=== PATIENT | female | born 1935 | race Caucasian/White ===

== ENCOUNTER 2021-09-20 11:02 | Inpatient (IN) | payer MEDICARE, BC ==
[2021-09-20] MEDS ORDERED: Acetaminophen/HYDROcodone 325-10 MG Tab PO PRN (13:23)
[2021-09-20] MEDS ORDERED: Melatonin 3 MG Tab PO PRN (13:23)
[2021-09-20] MEDS ORDERED: Acetaminophen 325 MG Tab PO PRN (13:46)
[2021-09-20] MEDS ORDERED: Ondansetron 4 MG Tab.DIS PO PRN (13:46)
[2021-09-20] MEDS ORDERED: Docusate Sodium 100 MG Cap PO PRN (13:46)
[2021-09-20] MEDS ORDERED: Polyethylene Glycol 3350 Powder 17 GM Packet PO PRN (13:46)
[2021-09-20 14:39] LABS: ANION GAP 10.1 mEq/L (7-13)
[2021-09-20] MEDS: Ezetimibe 10 MG Tab PO SCH (20:07)
[2021-09-20] MEDS: Metoprolol Tartrate 25 MG Tab PO SCH (20:07)
[2021-09-20] MEDS: Aspirin 81 MG Tab.EC PO SCH (20:07)
[2021-09-20] MEDS: Pregabalin 75 MG Cap PO SCH (20:07)
[2021-09-20] MEDS: Acetaminophen/HYDROcodone 325-10 MG Tab PO PRN (22:15)
[2021-09-21] MEDS: Levothyroxine 100 MCG Tab PO SCH (05:13)
[2021-09-21] MEDS: Acetaminophen/HYDROcodone 325-10 MG Tab PO PRN ×4 (05:13→20:21)
[2021-09-21] MEDS: Calcitriol 0.25 MCG Cap PO SCH (09:21)
[2021-09-21] MEDS: Enoxaparin 30 MG/0.3 ML Syringe SUBCUT SCH (09:21)
[2021-09-21] MEDS: Furosemide 40 MG Tab PO SCH (09:21)
[2021-09-21] MEDS: Glimepiride 2 MG Tab PO SCH (09:22)
[2021-09-21] MEDS: Pregabalin 75 MG Cap PO SCH ×2 (09:22→20:18)
[2021-09-21] MEDS: Allopurinol 100 MG Tab PO SCH (09:22)
[2021-09-21] MEDS: Metoprolol Tartrate 25 MG Tab PO SCH ×2 (09:24→20:18)
[2021-09-21] MEDS ORDERED: Melatonin 3 MG Tab PO PRN (14:44)
[2021-09-21] MEDS: Ezetimibe 10 MG Tab PO SCH (20:18)
[2021-09-21] MEDS: Aspirin 81 MG Tab.EC PO SCH (20:18)
[2021-09-22] MEDS: Levothyroxine 100 MCG Tab PO SCH (06:09)
[2021-09-22] MEDS: Glimepiride 2 MG Tab PO SCH (08:41)
[2021-09-22] MEDS: Enoxaparin 30 MG/0.3 ML Syringe SUBCUT SCH (08:42)
[2021-09-22] MEDS: Pregabalin 75 MG Cap PO SCH ×2 (08:42→21:01)
[2021-09-22] MEDS: Calcitriol 0.25 MCG Cap PO SCH (08:42)
[2021-09-22] MEDS: Allopurinol 100 MG Tab PO SCH (08:42)
[2021-09-22] MEDS: Metoprolol Tartrate 25 MG Tab PO SCH ×2 (08:42→21:02)
[2021-09-22] MEDS ORDERED: Furosemide 20 MG Tab PO SCH (09:00)
[2021-09-22] MEDS: Acetaminophen/HYDROcodone 325-10 MG Tab PO PRN ×3 (11:29→21:07)
[2021-09-22] MEDS: Aspirin 81 MG Tab.EC PO SCH (21:02)
[2021-09-22] MEDS: Ezetimibe 10 MG Tab PO SCH (21:02)
[2021-09-23 00:21] VITALS: PULSE 62
[2021-09-23] MEDS: Levothyroxine 100 MCG Tab PO SCH (05:48)
[2021-09-23] MEDS: Acetaminophen/HYDROcodone 325-10 MG Tab PO PRN (05:49)
[2021-09-23 08:05] VITALS: BP 141/43
[2021-09-23] MEDS: Furosemide 40 MG Tab PO SCH (09:00)
[2021-09-23] MEDS: Glimepiride 2 MG Tab PO SCH (09:01)
[2021-09-23] MEDS: Calcitriol 0.25 MCG Cap PO SCH (09:02)
[2021-09-23] MEDS: Allopurinol 100 MG Tab PO SCH (09:02)
[2021-09-23] MEDS: Metoprolol Tartrate 25 MG Tab PO SCH (09:02)
[2021-09-23] MEDS: Pregabalin 75 MG Cap PO SCH (09:03)
[2021-09-23] MEDS: Enoxaparin 30 MG/0.3 ML Syringe SUBCUT SCH (09:03)
[2021-10-06] MEDS ORDERED: Cyanocobalamin (Vitamin B12) 1,000 MCG/ML SDV IM ONE (09:00)
== END 2021-09-23 11:20 | disposition swing bed (61) | DRG 563 ==
LOC: UNDOADMIN 11:02 → DL.MS 11:02
PROVIDERS: ADMIT Internal Medicine; ATTEND Internal Medicine
DX: S42.92XA Fracture of left shoulder girdle, part unspecified, initial encounter for closed fracture (principal); N18.4 Chronic kidney disease, stage 4 (severe); W19.XXXA Unspecified fall, initial encounter; E11.22 Type 2 diabetes mellitus with diabetic chronic kidney disease; I12.9 Hypertensive chronic kidney disease with stage 1 through stage 4 chronic kidney disease, or unspecified chronic kidney disease; E11.42 Type 2 diabetes mellitus with diabetic polyneuropathy; J44.9 Chronic obstructive pulmonary disease, unspecified; Z66 Do not resuscitate; H54.7 Unspecified visual loss; E87.6 Hypokalemia; Z20.822 Contact with and (suspected) exposure to COVID-19; K21.9 Gastro-esophageal reflux disease without esophagitis; K59.00 Constipation, unspecified; N93.8 Other specified abnormal uterine and vaginal bleeding; M10.9 Gout, unspecified; E53.8 Deficiency of other specified B group vitamins; D64.9 Anemia, unspecified; Z86.19 Personal history of other infectious and parasitic diseases; Z90.89 Acquired absence of other organs; Z79.899 Other long term (current) drug therapy; Z79.82 Long term (current) use of aspirin; Z79.890 Hormone replacement therapy; Z88.8 Allergy status to other drugs, medicaments and biological substances; Z98.49 Cataract extraction status, unspecified eye; Z90.49 Acquired absence of other specified parts of digestive tract; Z90.710 Acquired absence of both cervix and uterus
CPT/HCPCS: 36415; 80048; 82947; 84443; 85025; 97116-GP; 97166-GO; 97535-GO; A9270-GY; J1650; U0002

== ENCOUNTER 2021-09-23 11:00 | Inpatient (IN) | payer MEDICARE, BC ==
[2021-09-23] MEDS ORDERED: Polyethylene Glycol 3350 Powder 17 GM Packet PO PRN (11:13)
[2021-09-23] MEDS ORDERED: Ondansetron 4 MG Tab.DIS PO PRN (11:13)
[2021-09-23] MEDS ORDERED: Acetaminophen 325 MG Tab PO PRN (11:13)
[2021-09-23] MEDS: Acetaminophen/HYDROcodone 325-10 MG Tab PO PRN ×2 (15:56→20:15)
[2021-09-23] MEDS: Metoprolol Tartrate 25 MG Tab PO SCH (20:14)
[2021-09-23] MEDS: Ezetimibe 10 MG Tab PO SCH (20:14)
[2021-09-23] MEDS: Pregabalin 75 MG Cap PO SCH (20:16)
[2021-09-23] MEDS: Aspirin 81 MG Tab.EC PO SCH (20:16)
[2021-09-24] MEDS: Levothyroxine 100 MCG Tab PO SCH (06:28)
[2021-09-24] MEDS: Acetaminophen/HYDROcodone 325-10 MG Tab PO PRN ×3 (09:22→21:40)
[2021-09-24] MEDS: Pregabalin 75 MG Cap PO SCH ×2 (09:23→21:37)
[2021-09-24] MEDS: Furosemide 20 MG Tab PO SCH (09:23)
[2021-09-24] MEDS: Metoprolol Tartrate 25 MG Tab PO SCH ×2 (09:23→21:38)
[2021-09-24] MEDS: Calcitriol 0.25 MCG Cap PO SCH (09:23)
[2021-09-24] MEDS: Allopurinol 100 MG Tab PO SCH (09:23)
[2021-09-24] MEDS: Enoxaparin 30 MG/0.3 ML Syringe SUBCUT SCH (09:24)
[2021-09-24] MEDS: Glimepiride 2 MG Tab PO SCH (09:24)
[2021-09-24] MEDS: Ezetimibe 10 MG Tab PO SCH (21:37)
[2021-09-24] MEDS: Aspirin 81 MG Tab.EC PO SCH (21:38)
[2021-09-24] MEDS: Melatonin 3 MG Tab PO PRN (21:40)
[2021-09-25] MEDS: Levothyroxine 100 MCG Tab PO SCH (05:42)
[2021-09-25] MEDS: Acetaminophen/HYDROcodone 325-10 MG Tab PO PRN ×3 (09:48→19:38)
[2021-09-25] MEDS: Glimepiride 2 MG Tab PO SCH (09:51)
[2021-09-25] MEDS: Allopurinol 100 MG Tab PO SCH (09:51)
[2021-09-25] MEDS: Metoprolol Tartrate 25 MG Tab PO SCH ×2 (09:52→20:53)
[2021-09-25] MEDS: Furosemide 40 MG Tab PO SCH (09:52)
[2021-09-25] MEDS: Pregabalin 75 MG Cap PO SCH ×2 (09:52→20:54)
[2021-09-25] MEDS: Enoxaparin 30 MG/0.3 ML Syringe SUBCUT SCH (09:52)
[2021-09-25] MEDS: Ezetimibe 10 MG Tab PO SCH (20:53)
[2021-09-25] MEDS: Aspirin 81 MG Tab.EC PO SCH (20:54)
[2021-09-26] MEDS: Levothyroxine 100 MCG Tab PO SCH (05:24)
[2021-09-26] MEDS: Acetaminophen/HYDROcodone 325-10 MG Tab PO PRN ×4 (05:31→20:37)
[2021-09-26] MEDS: Furosemide 20 MG Tab PO SCH (10:30)
[2021-09-26] MEDS: Allopurinol 100 MG Tab PO SCH (10:30)
[2021-09-26] MEDS: Metoprolol Tartrate 25 MG Tab PO SCH ×2 (10:30→20:38)
[2021-09-26] MEDS: Pregabalin 75 MG Cap PO SCH ×2 (10:31→20:39)
[2021-09-26] MEDS: Glimepiride 2 MG Tab PO SCH (10:31)
[2021-09-26] MEDS: Enoxaparin 30 MG/0.3 ML Syringe SUBCUT SCH (10:31)
[2021-09-26] MEDS: Aspirin 81 MG Tab.EC PO SCH (20:37)
[2021-09-26] MEDS: Ezetimibe 10 MG Tab PO SCH (20:39)
[2021-09-27] MEDS: Levothyroxine 100 MCG Tab PO SCH (05:47)
[2021-09-27] MEDS: Acetaminophen/HYDROcodone 325-10 MG Tab PO PRN ×3 (05:48→19:49)
[2021-09-27 07:30] LABS: ANION GAP 11.6 mEq/L (7-13)
[2021-09-27] MEDS: Metoprolol Tartrate 25 MG Tab PO SCH ×2 (09:33→20:12)
[2021-09-27] MEDS: Calcitriol 0.25 MCG Cap PO SCH (09:34)
[2021-09-27] MEDS: Glimepiride 2 MG Tab PO SCH (09:34)
[2021-09-27] MEDS: Allopurinol 100 MG Tab PO SCH (09:35)
[2021-09-27] MEDS: Furosemide 40 MG Tab PO SCH (09:35)
[2021-09-27] MEDS: Pregabalin 75 MG Cap PO SCH ×2 (09:35→20:12)
[2021-09-27] MEDS: Docusate Sodium 100 MG Cap PO PRN (09:35)
[2021-09-27] MEDS: Enoxaparin 30 MG/0.3 ML Syringe SUBCUT SCH (09:36)
[2021-09-27] MEDS: Polyethylene Glycol 3350 Powder 17 GM Packet PO SCH (09:37)
[2021-09-27] MEDS: Iron Sucrose Complex 500 MG in Sodium Chloride 0.9% 250 ML IV SCH ×2 (12:05→12:35)
[2021-09-27] MEDS: Aspirin 81 MG Tab.EC PO SCH (20:12)
[2021-09-27] MEDS: Ezetimibe 10 MG Tab PO SCH (20:12)
[2021-09-28] MEDS: Levothyroxine 100 MCG Tab PO SCH (06:39)
[2021-09-28] MEDS: Glimepiride 2 MG Tab PO SCH (09:13)
[2021-09-28] MEDS: Allopurinol 100 MG Tab PO SCH (09:13)
[2021-09-28] MEDS: Pregabalin 75 MG Cap PO SCH ×2 (09:14→22:17)
[2021-09-28] MEDS: Enoxaparin 30 MG/0.3 ML Syringe SUBCUT SCH (09:15)
[2021-09-28] MEDS: Calcitriol 0.25 MCG Cap PO SCH (09:15)
[2021-09-28] MEDS: Furosemide 20 MG Tab PO SCH (09:15)
[2021-09-28] MEDS: Metoprolol Tartrate 25 MG Tab PO SCH ×2 (09:15→22:17)
[2021-09-28] MEDS: Polyethylene Glycol 3350 Powder 17 GM Packet PO SCH (09:16)
[2021-09-28] MEDS: Acetaminophen/HYDROcodone 325-10 MG Tab PO PRN ×4 (09:19→22:17)
[2021-09-28] MEDS: Iron Sucrose Complex 500 MG in Sodium Chloride 0.9% 250 ML IV SCH (13:07)
[2021-09-28] MEDS ORDERED: Magnesium Hydroxide 400 MG/5 ML Susp 30 ML Cup PO PRN (20:14)
[2021-09-28] MEDS: Melatonin 3 MG Tab PO PRN (22:17)
[2021-09-28] MEDS: Ezetimibe 10 MG Tab PO SCH (22:17)
[2021-09-28] MEDS: Aspirin 81 MG Tab.EC PO SCH (22:17)
[2021-09-29] MEDS: Acetaminophen/HYDROcodone 325-10 MG Tab PO PRN ×4 (05:55→21:22)
[2021-09-29] MEDS: Levothyroxine 100 MCG Tab PO SCH (05:55)
[2021-09-29] MEDS: Allopurinol 100 MG Tab PO SCH (08:15)
[2021-09-29] MEDS: Calcitriol 0.25 MCG Cap PO SCH (08:15)
[2021-09-29] MEDS: Furosemide 40 MG Tab PO SCH (08:16)
[2021-09-29] MEDS: Enoxaparin 30 MG/0.3 ML Syringe SUBCUT SCH (08:16)
[2021-09-29] MEDS: Metoprolol Tartrate 25 MG Tab PO SCH ×2 (08:16→21:24)
[2021-09-29] MEDS: Pregabalin 75 MG Cap PO SCH ×2 (08:16→21:24)
[2021-09-29] MEDS: Polyethylene Glycol 3350 Powder 17 GM Packet PO SCH (08:18)
[2021-09-29 09:24] LABS: ANION GAP 12.7 mEq/L (7-13); CHLORIDE,CL 101 mmol/L (98-107); SODIUM,NA 140 mmol/L (136-145)
[2021-09-29 09:27] LABS: ESTIMATED GFR 13
[2021-09-29] MEDS: Glimepiride 2 MG Tab PO SCH (10:34)
[2021-09-29] MEDS: Ezetimibe 10 MG Tab PO SCH (21:23)
[2021-09-29] MEDS: Aspirin 81 MG Tab.EC PO SCH (21:24)
[2021-09-29] MEDS: Lidocaine 5% 700 MG Patch TOP SCH (21:24)
[2021-09-29] MEDS: Melatonin 3 MG Tab PO PRN (21:24)
[2021-09-29] MEDS ORDERED: Sodium Chloride 0.9% 10 ML Syringe FLUSH PRN (21:29)
[2021-09-30] MEDS: Acetaminophen/HYDROcodone 325-10 MG Tab PO PRN ×2 (05:36→14:38)
[2021-09-30] MEDS: Levothyroxine 100 MCG Tab PO SCH (05:36)
[2021-09-30] MEDS: Allopurinol 100 MG Tab PO SCH (09:58)
[2021-09-30] MEDS: Pregabalin 75 MG Cap PO SCH ×2 (09:59→22:53)
[2021-09-30] MEDS: Metoprolol Tartrate 25 MG Tab PO SCH ×2 (09:59→22:52)
[2021-09-30] MEDS: Furosemide 20 MG Tab PO SCH (09:59)
[2021-09-30] MEDS: Calcitriol 0.25 MCG Cap PO SCH (09:59)
[2021-09-30] MEDS: Enoxaparin 30 MG/0.3 ML Syringe SUBCUT SCH (10:00)
[2021-09-30] MEDS: Polyethylene Glycol 3350 Powder 17 GM Packet PO SCH (10:02)
[2021-09-30] MEDS: Glimepiride 2 MG Tab PO SCH ×2 (10:06→11:10)
[2021-09-30] MEDS ORDERED: Magnesium Hydroxide 400 MG/5 ML Susp 30 ML Cup PO ONE (13:31)
[2021-09-30] MEDS: Ezetimibe 10 MG Tab PO SCH (22:52)
[2021-09-30] MEDS: Aspirin 81 MG Tab.EC PO SCH (22:53)
[2021-09-30] MEDS: Lidocaine 5% 700 MG Patch TOP SCH (22:59)
[2021-10-01] MEDS: Levothyroxine 100 MCG Tab PO SCH (05:16)
[2021-10-01] MEDS: Acetaminophen/HYDROcodone 325-10 MG Tab PO PRN ×4 (05:21→22:48)
[2021-10-01] MEDS: Glimepiride 2 MG Tab PO SCH (08:30)
[2021-10-01] MEDS: Polyethylene Glycol 3350 Powder 17 GM Packet PO SCH (09:48)
[2021-10-01] MEDS: Furosemide 40 MG Tab PO SCH (09:48)
[2021-10-01] MEDS: Calcitriol 0.25 MCG Cap PO SCH (09:49)
[2021-10-01] MEDS: Enoxaparin 30 MG/0.3 ML Syringe SUBCUT SCH (09:49)
[2021-10-01] MEDS: Pregabalin 75 MG Cap PO SCH ×2 (09:50→21:58)
[2021-10-01] MEDS: Allopurinol 100 MG Tab PO SCH (09:51)
[2021-10-01] MEDS: Metoprolol Tartrate 25 MG Tab PO SCH ×2 (09:52→21:57)
[2021-10-01] MEDS ORDERED: predniSONE 20 MG Tab PO ONE (09:57)
[2021-10-01] MEDS: Colchicine 0.6 MG Tab PO SCH ×2 (13:06→21:58)
[2021-10-01] MEDS: Ezetimibe 10 MG Tab PO SCH (21:58)
[2021-10-01] MEDS: Lidocaine 5% 700 MG Patch TOP SCH (21:58)
[2021-10-01] MEDS: Aspirin 81 MG Tab.EC PO SCH (21:58)
[2021-10-02] MEDS: Levothyroxine 100 MCG Tab PO SCH (06:30)
[2021-10-02] MEDS: Acetaminophen/HYDROcodone 325-10 MG Tab PO PRN ×3 (06:35→20:58)
[2021-10-02 07:36] LABS: ANION GAP 13.3 mEq/L (7-13); CHLORIDE,CL 103 mmol/L (98-107); SODIUM,NA 142 mmol/L (136-145)
[2021-10-02 07:39] LABS: ESTIMATED GFR 15
[2021-10-02] MEDS: Polyethylene Glycol 3350 Powder 17 GM Packet PO SCH (08:33)
[2021-10-02] MEDS: Metoprolol Tartrate 25 MG Tab PO SCH ×2 (08:33→21:00)
[2021-10-02] MEDS: Pregabalin 75 MG Cap PO SCH ×2 (08:34→20:59)
[2021-10-02] MEDS: Glimepiride 2 MG Tab PO SCH (08:35)
[2021-10-02] MEDS: Furosemide 20 MG Tab PO SCH (08:35)
[2021-10-02] MEDS: Colchicine 0.6 MG Tab PO SCH ×2 (08:38→21:00)
[2021-10-02] MEDS: Allopurinol 100 MG Tab PO SCH (08:38)
[2021-10-02] MEDS: Enoxaparin 30 MG/0.3 ML Syringe SUBCUT SCH (08:40)
[2021-10-02] MEDS: Lidocaine 5% 700 MG Patch TOP SCH ×2 (19:29→21:01)
[2021-10-02] MEDS: Ezetimibe 10 MG Tab PO SCH (20:59)
[2021-10-02] MEDS: Aspirin 81 MG Tab.EC PO SCH (20:59)
[2021-10-03] MEDS: Levothyroxine 100 MCG Tab PO SCH (05:36)
[2021-10-03] MEDS: Acetaminophen/HYDROcodone 325-10 MG Tab PO PRN ×4 (06:48→21:11)
[2021-10-03] MEDS: Polyethylene Glycol 3350 Powder 17 GM Packet PO SCH (08:32)
[2021-10-03] MEDS: Metoprolol Tartrate 25 MG Tab PO SCH ×2 (08:32→21:11)
[2021-10-03] MEDS: Colchicine 0.6 MG Tab PO SCH (08:32)
[2021-10-03] MEDS: Pregabalin 75 MG Cap PO SCH ×2 (08:33→21:11)
[2021-10-03] MEDS: Furosemide 40 MG Tab PO SCH (08:33)
[2021-10-03] MEDS: Allopurinol 100 MG Tab PO SCH (08:33)
[2021-10-03] MEDS: Docusate Sodium 100 MG Cap PO PRN (08:34)
[2021-10-03] MEDS: Glimepiride 2 MG Tab PO SCH (08:34)
[2021-10-03] MEDS: Enoxaparin 30 MG/0.3 ML Syringe SUBCUT SCH (08:35)
[2021-10-03] MEDS: Aspirin 81 MG Tab.EC PO SCH (21:11)
[2021-10-03] MEDS: Ezetimibe 10 MG Tab PO SCH (21:11)
[2021-10-03] MEDS: Lidocaine 5% 700 MG Patch TOP SCH (21:12)
[2021-10-04] MEDS: Levothyroxine 100 MCG Tab PO SCH (06:01)
[2021-10-04] MEDS: Calcitriol 0.25 MCG Cap PO SCH (09:19)
[2021-10-04] MEDS: Allopurinol 100 MG Tab PO SCH (09:19)
[2021-10-04] MEDS: Metoprolol Tartrate 25 MG Tab PO SCH (09:19)
[2021-10-04] MEDS: Enoxaparin 30 MG/0.3 ML Syringe SUBCUT SCH (09:19)
[2021-10-04] MEDS: Glimepiride 2 MG Tab PO SCH (09:21)
[2021-10-04] MEDS: Pregabalin 75 MG Cap PO SCH (09:22)
[2021-10-04] MEDS: Acetaminophen/HYDROcodone 325-10 MG Tab PO PRN (09:23)
[2021-10-04] MEDS: Furosemide 20 MG Tab PO SCH (09:23)
[2021-10-04] MEDS: Polyethylene Glycol 3350 Powder 17 GM Packet PO SCH (09:24)
[2021-10-04 09:28] VITALS: BP 153/69; PULSE 77
[2021-10-05] MEDS ORDERED: Glimepiride 2 MG Tab PO SCH (08:00)
[2021-10-05] MEDS ORDERED: Pregabalin 75 MG Cap PO SCH (09:00)
[2021-10-06] MEDS ORDERED: Cyanocobalamin (Vitamin B12) 1,000 MCG/ML SDV IM ONE (09:00)
== END 2021-10-04 10:10 | DRG 563 ==
LOC: DL.MS 11:09 → UNDOADMIN 11:25 → DL.MS 11:25
PROVIDERS: ADMIT Internal Medicine; ATTEND Internal Medicine
DX: S42.302A Unspecified fracture of shaft of humerus, left arm, initial encounter for closed fracture (principal); N18.4 Chronic kidney disease, stage 4 (severe); Z66 Do not resuscitate; E11.22 Type 2 diabetes mellitus with diabetic chronic kidney disease; Z20.822 Contact with and (suspected) exposure to COVID-19; E11.42 Type 2 diabetes mellitus with diabetic polyneuropathy; K59.01 Slow transit constipation; J44.9 Chronic obstructive pulmonary disease, unspecified; E78.00 Pure hypercholesterolemia, unspecified; I12.9 Hypertensive chronic kidney disease with stage 1 through stage 4 chronic kidney disease, or unspecified chronic kidney disease; D63.1 Anemia in chronic kidney disease; M54.42 Lumbago with sciatica, left side; D50.9 Iron deficiency anemia, unspecified; K21.9 Gastro-esophageal reflux disease without esophagitis; Z90.49 Acquired absence of other specified parts of digestive tract; Z79.82 Long term (current) use of aspirin; Z79.899 Other long term (current) drug therapy; Z88.8 Allergy status to other drugs, medicaments and biological substances; Z90.710 Acquired absence of both cervix and uterus
CPT/HCPCS: 36415; 80048; 81001; 82272; 82728; 82947; 83540; 83550; 84443; 84550; 85025; 85027; 86140; 87086; 97116-GP; 97161-GP; 97166-GO; 97530-GO; 97530-GP; 97535-GO; 99305; 99307; 99308; 99316; A9270-GY; J1650; J1756; J3490; J7050; U0002

== ENCOUNTER 2022-07-22 16:02 | Inpatient (IN) | payer MEDICARE, BC ==
[2022-07-22] MEDS ORDERED: Furosemide 40 MG/4 ML VIAL IVPUSH ONE (16:28)
[2022-07-22] MEDS ORDERED: Nitroglycerin/D5W 25 MG/250 ML BOTTLE IV SCH (16:30)
[2022-07-22] MEDS: Sodium Chloride 0.9% 10 ML Syringe FLUSH PRN ×2 (16:39→18:12)
[2022-07-22 17:06] LABS: ANION GAP 13.8 mEq/L (7-13)
[2022-07-22] MEDS ORDERED: Heparin Sodium 5,000 Units/ML Vial IVPUSH ONE (17:27)
[2022-07-22] MEDS ORDERED: Heparin Sodium/0.45% NaCl 25,000 UNITS/500 ML BAG IV SCH (17:30)
[2022-07-22] MEDS ORDERED: cefTRIAXone 2 GM Vial IVPUSH ONE (17:57)
[2022-07-22] MEDS ORDERED: HYDROmorphone 0.5 MG/0.5 ML Syringe IVPUSH PRN (18:54)
[2022-07-22] MEDS ORDERED: Polyethylene Glycol 3350 Powder 17 GM Packet PO PRN (18:54)
[2022-07-22] MEDS ORDERED: Magnesium Hydroxide 400 MG/5 ML Susp 30 ML Cup PO PRN (18:54)
[2022-07-22] MEDS ORDERED: Glucagon,Human Recombinant 1 MG Vial IM PRN (19:46)
[2022-07-22] MEDS ORDERED: 50% Dextrose in Water 50 ML Syringe IVPUSH PRN (19:46)
[2022-07-22] MEDS ORDERED: Azithromycin 500 MG in Sodium Chloride 0.9% 250 ML IV ONE (23:31)
[2022-07-22] MEDS ORDERED: hydrALAZINE 20 MG/ML SDV IVPUSH PRN (23:41)
[2022-07-22] MEDS ORDERED: Metoprolol Tartrate 5 MG/5 ML SDV IVPUSH PRN (23:41)
[2022-07-23 06:36] LABS: ANION GAP 12.4 mEq/L (7-13)
[2022-07-23] MEDS: [UNRECOGNIZED DRUG - OTHER] PO SCH (08:32)
[2022-07-23] MEDS: Saccharomyces Boulardii (Probiotic) 250 MG Cap PO SCH ×2 (08:32→21:02)
[2022-07-23] MEDS: cefTRIAXone 1 GM Vial IVPUSH SCH (08:33)
[2022-07-23] MEDS: Insulin Lispro 100 Units/ML 3 ML Vial SUBCUT SCH ×3 (08:36→17:30)
[2022-07-23] MEDS ORDERED: Furosemide 100 MG/10 ML SDV IVPUSH ONE (08:53)
[2022-07-23] MEDS: hydrALAZINE 25 MG Tab PO SCH ×3 (09:58→23:01)
[2022-07-23] MEDS: Metoprolol Tartrate 25 MG Tab PO SCH ×2 (09:58→20:00)
[2022-07-23] MEDS ORDERED: Digoxin 500 MCG/2 ML Amp IVPUSH ONE (13:07)
[2022-07-23] MEDS ORDERED: Potassium Chloride 10 MEQ Tab.ER PO ONE (13:19)
[2022-07-23] MEDS: Enoxaparin 30 MG/0.3 ML Syringe SUBCUT SCH (14:06)
[2022-07-23] MEDS: Azithromycin 500 MG in Sodium Chloride 0.9% 250 ML IV SCH (19:54)
[2022-07-23] MEDS: Sodium Chloride 0.9% 10 ML Syringe FLUSH PRN (19:59)
[2022-07-24 07:01] LABS: ANION GAP 14.9 mEq/L (7-13)
[2022-07-24] MEDS: Insulin Lispro 100 Units/ML 3 ML Vial SUBCUT SCH ×3 (07:57→16:57)
[2022-07-24] MEDS: Enoxaparin 30 MG/0.3 ML Syringe SUBCUT SCH (08:15)
[2022-07-24] MEDS: Metoprolol Tartrate 25 MG Tab PO SCH ×2 (08:15→20:46)
[2022-07-24] MEDS: Saccharomyces Boulardii (Probiotic) 250 MG Cap PO SCH ×2 (08:15→20:43)
[2022-07-24] MEDS: hydrALAZINE 25 MG Tab PO SCH ×3 (08:16→20:43)
[2022-07-24] MEDS: Furosemide 80 MG Tab PO SCH (08:17)
[2022-07-24] MEDS: [UNRECOGNIZED DRUG - OTHER] PO SCH (08:17)
[2022-07-24] MEDS: cefTRIAXone 1 GM Vial IVPUSH SCH (08:18)
[2022-07-24] MEDS ORDERED: Metoprolol Tartrate 50 MG Tab PO ONE (08:45)
[2022-07-24] MEDS: Acetaminophen/HYDROcodone 325-5 MG Tab PO PRN (20:44)
[2022-07-24] MEDS: Acetaminophen 325 MG Tab PO PRN (20:45)
[2022-07-24] MEDS: Azithromycin 500 MG in Sodium Chloride 0.9% 250 ML IV SCH (20:47)
[2022-07-25] MEDS: hydrALAZINE 25 MG Tab PO SCH ×4 (01:46→20:18)
[2022-07-25 06:55] LABS: ANION GAP 13.9 mEq/L (7-13)
[2022-07-25] MEDS: Metoprolol Tartrate 25 MG Tab PO SCH (08:24)
[2022-07-25] MEDS: Enoxaparin 30 MG/0.3 ML Syringe SUBCUT SCH (08:24)
[2022-07-25] MEDS: Saccharomyces Boulardii (Probiotic) 250 MG Cap PO SCH ×2 (08:24→20:16)
[2022-07-25] MEDS: Insulin Lispro 100 Units/ML 3 ML Vial SUBCUT SCH ×3 (08:25→18:01)
[2022-07-25] MEDS: Furosemide 80 MG Tab PO SCH (08:25)
[2022-07-25] MEDS: cefTRIAXone 1 GM Vial IVPUSH SCH (08:26)
[2022-07-25] MEDS: [UNRECOGNIZED DRUG - OTHER] PO SCH (08:28)
[2022-07-25] MEDS: Metoprolol Tartrate 50 MG Tab PO SCH ×2 (12:24→20:17)
[2022-07-25] MEDS: Apixaban 5 MG Tab PO SCH ×2 (12:27→20:19)
[2022-07-25] MEDS: Acetaminophen 325 MG Tab PO PRN (20:15)
[2022-07-25] MEDS: Acetaminophen/HYDROcodone 325-5 MG Tab PO PRN (20:16)
[2022-07-25] MEDS: Azithromycin 500 MG in Sodium Chloride 0.9% 250 ML IV SCH (20:25)
[2022-07-25] MEDS: Albuterol/Ipratropium 3.0-0.5 MG/3 ML Neb Soln NEB PRN (20:27)
[2022-07-25] MEDS ORDERED: Zolpidem 5 MG Tab PO PRN (21:00)
[2022-07-26] MEDS: hydrALAZINE 25 MG Tab PO SCH ×4 (01:16→21:10)
[2022-07-26] MEDS: Albuterol/Ipratropium 3.0-0.5 MG/3 ML Neb Soln NEB PRN ×3 (01:16→09:43)
[2022-07-26 06:23] LABS: ANION GAP 14.7 mEq/L (7-13)
[2022-07-26] MEDS: Apixaban 5 MG Tab PO SCH ×2 (09:38→21:08)
[2022-07-26] MEDS: Insulin Lispro 100 Units/ML 3 ML Vial SUBCUT SCH ×3 (09:38→17:40)
[2022-07-26] MEDS: Saccharomyces Boulardii (Probiotic) 250 MG Cap PO SCH ×2 (09:40→21:11)
[2022-07-26] MEDS: Furosemide 80 MG Tab PO SCH (09:40)
[2022-07-26] MEDS: [UNRECOGNIZED DRUG - OTHER] PO SCH (09:42)
[2022-07-26] MEDS: guaiFENesin/Dextromethorphan 100-10 MG/5 ML Soln 5 ML Cup PO PRN (09:43)
[2022-07-26] MEDS: Metoprolol Tartrate 50 MG Tab PO SCH ×2 (09:51→21:09)
[2022-07-26] MEDS: cefTRIAXone 1 GM Vial IVPUSH SCH (10:02)
[2022-07-26] MEDS: Albuterol/Ipratropium 3.0-0.5 MG/3 ML Neb Soln NEB SCH ×4 (14:23→23:12)
[2022-07-26] MEDS ORDERED: Furosemide 100 MG/10 ML SDV IVPUSH ONE (15:00)
[2022-07-26] MEDS: Acetaminophen 325 MG Tab PO PRN (15:10)
[2022-07-26] MEDS: methylPREDNISolone Sodium Succinate 40 MG/1 ML SDV IVPUSH SCH ×2 (16:15→23:12)
[2022-07-26] MEDS: Sodium Chloride 0.9% 10 ML Syringe FLUSH PRN ×2 (16:16→17:45)
[2022-07-26] MEDS: Piperacillin/Tazobactam 2.25 GM in Sodium Chloride 0.9% 50 ML IV SCH ×2 (17:43→23:12)
[2022-07-26] MEDS: Doxazosin 2 MG Tab PO SCH (21:11)
[2022-07-27] MEDS: hydrALAZINE 25 MG Tab PO SCH ×5 (02:44→20:49)
[2022-07-27] MEDS: Albuterol/Ipratropium 3.0-0.5 MG/3 ML Neb Soln NEB SCH ×5 (02:45→18:16)
[2022-07-27] MEDS: Piperacillin/Tazobactam 2.25 GM in Sodium Chloride 0.9% 50 ML IV SCH ×3 (05:15→17:15)
[2022-07-27 06:00] LABS: ANION GAP 12.7 mEq/L (7-13)
[2022-07-27] MEDS: methylPREDNISolone Sodium Succinate 40 MG/1 ML SDV IVPUSH SCH ×2 (06:07→14:36)
[2022-07-27] MEDS: Apixaban 5 MG Tab PO SCH ×2 (08:26→20:49)
[2022-07-27] MEDS: Furosemide 80 MG Tab PO SCH (08:26)
[2022-07-27] MEDS: Saccharomyces Boulardii (Probiotic) 250 MG Cap PO SCH ×2 (08:26→20:49)
[2022-07-27] MEDS: Metoprolol Tartrate 50 MG Tab PO SCH ×2 (08:27→20:49)
[2022-07-27] MEDS: [UNRECOGNIZED DRUG - OTHER] PO SCH (08:28)
[2022-07-27] MEDS: Insulin Lispro 100 Units/ML 3 ML Vial SUBCUT SCH ×3 (08:31→17:20)
[2022-07-27] MEDS: Sodium Chloride 0.9% 10 ML Syringe FLUSH PRN ×2 (14:45→17:16)
[2022-07-27] MEDS: Acetaminophen/HYDROcodone 325-5 MG Tab PO PRN ×2 (15:05→20:54)
[2022-07-27] MEDS: Doxazosin 2 MG Tab PO SCH (20:48)
[2022-07-27] MEDS: LORazepam 1 MG Tab PO PRN (20:50)
[2022-07-27] MEDS ORDERED: traZODone 50 MG Tab PO ONE (23:44)
[2022-07-28] MEDS: methylPREDNISolone Sodium Succinate 40 MG/1 ML SDV IVPUSH SCH ×4 (00:14→23:11)
[2022-07-28] MEDS: Albuterol/Ipratropium 3.0-0.5 MG/3 ML Neb Soln NEB SCH ×8 (00:14→23:11)
[2022-07-28] MEDS: Piperacillin/Tazobactam 2.25 GM in Sodium Chloride 0.9% 50 ML IV SCH ×5 (00:14→23:12)
[2022-07-28] MEDS: hydrALAZINE 25 MG Tab PO SCH ×4 (01:03→20:46)
[2022-07-28 06:25] LABS: ANION GAP 13.5 mEq/L (7-13)
[2022-07-28] MEDS: Metoprolol Tartrate 50 MG Tab PO SCH ×2 (08:27→20:46)
[2022-07-28] MEDS: Furosemide 80 MG Tab PO SCH (08:27)
[2022-07-28] MEDS: Apixaban 5 MG Tab PO SCH ×2 (08:28→20:47)
[2022-07-28] MEDS: Saccharomyces Boulardii (Probiotic) 250 MG Cap PO SCH ×2 (08:28→20:47)
[2022-07-28] MEDS: [UNRECOGNIZED DRUG - OTHER] PO SCH (08:30)
[2022-07-28] MEDS: Insulin Lispro 100 Units/ML 3 ML Vial SUBCUT SCH ×3 (08:30→17:28)
[2022-07-28] MEDS: traZODone 50 MG Tab PO SCH (20:46)
[2022-07-28] MEDS: Doxazosin 2 MG Tab PO SCH (20:46)
[2022-07-28] MEDS: LORazepam 1 MG Tab PO PRN (20:47)
[2022-07-29] MEDS: Albuterol/Ipratropium 3.0-0.5 MG/3 ML Neb Soln NEB SCH ×6 (01:59→23:19)
[2022-07-29] MEDS: hydrALAZINE 25 MG Tab PO SCH ×4 (01:59→19:33)
[2022-07-29] MEDS: Acetaminophen/HYDROcodone 325-5 MG Tab PO PRN ×3 (05:36→23:19)
[2022-07-29] MEDS: Piperacillin/Tazobactam 2.25 GM in Sodium Chloride 0.9% 50 ML IV SCH ×4 (05:36→23:19)
[2022-07-29] MEDS: methylPREDNISolone Sodium Succinate 40 MG/1 ML SDV IVPUSH SCH ×3 (06:00→19:33)
[2022-07-29] MEDS: Metoprolol Tartrate 50 MG Tab PO SCH ×2 (08:30→21:35)
[2022-07-29] MEDS: Saccharomyces Boulardii (Probiotic) 250 MG Cap PO SCH ×2 (08:30→21:34)
[2022-07-29] MEDS: Apixaban 5 MG Tab PO SCH ×2 (08:30→21:34)
[2022-07-29] MEDS: Furosemide 80 MG Tab PO SCH (08:31)
[2022-07-29] MEDS: Insulin Lispro 100 Units/ML 3 ML Vial SUBCUT SCH ×3 (08:39→17:51)
[2022-07-29] MEDS: [UNRECOGNIZED DRUG - OTHER] PO SCH (08:39)
[2022-07-29] MEDS: Doxazosin 2 MG Tab PO SCH (21:35)
[2022-07-29] MEDS: LORazepam 1 MG Tab PO PRN (21:36)
[2022-07-29] MEDS: traZODone 50 MG Tab PO SCH (21:36)
[2022-07-30] MEDS: hydrALAZINE 25 MG Tab PO SCH ×4 (02:58→20:50)
[2022-07-30] MEDS: Albuterol/Ipratropium 3.0-0.5 MG/3 ML Neb Soln NEB SCH ×6 (02:59→23:56)
[2022-07-30] MEDS: Piperacillin/Tazobactam 2.25 GM in Sodium Chloride 0.9% 50 ML IV SCH ×4 (06:02→23:56)
[2022-07-30] MEDS: Isosorbide Mononitrate 30 MG Tab.ER PO SCH (06:02)
[2022-07-30 06:14] LABS: ANION GAP 16.7 mEq/L (7-13)
[2022-07-30] MEDS ORDERED: Sodium Chloride 0.9% 1,000 ML IV SCH (08:00)
[2022-07-30] MEDS: Insulin Lispro 100 Units/ML 3 ML Vial SUBCUT SCH ×3 (08:40→17:18)
[2022-07-30] MEDS: [UNRECOGNIZED DRUG - OTHER] PO SCH (08:41)
[2022-07-30] MEDS: methylPREDNISolone Sodium Succinate 40 MG/1 ML SDV IVPUSH SCH ×2 (08:41→20:49)
[2022-07-30] MEDS: Metoprolol Tartrate 50 MG Tab PO SCH ×2 (08:44→20:51)
[2022-07-30] MEDS: Saccharomyces Boulardii (Probiotic) 250 MG Cap PO SCH ×2 (08:44→20:49)
[2022-07-30] MEDS: Apixaban 5 MG Tab PO SCH ×2 (08:45→20:50)
[2022-07-30] MEDS ORDERED: Furosemide 40 MG Tab PO SCH (09:00)
[2022-07-30] MEDS: LORazepam 1 MG Tab PO PRN (20:49)
[2022-07-30] MEDS: Doxazosin 2 MG Tab PO SCH (20:50)
[2022-07-30] MEDS: traZODone 50 MG Tab PO SCH (20:50)
[2022-07-30] MEDS: Albuterol 0.083% 2.5 MG/3 ML Neb Soln NEB PRN (20:52)
[2022-07-31] MEDS: hydrALAZINE 25 MG Tab PO SCH ×4 (02:05→20:33)
[2022-07-31] MEDS: Albuterol/Ipratropium 3.0-0.5 MG/3 ML Neb Soln NEB SCH ×6 (02:05→23:12)
[2022-07-31] MEDS: Albuterol 0.083% 2.5 MG/3 ML Neb Soln NEB PRN ×2 (02:52→21:24)
[2022-07-31] MEDS: Piperacillin/Tazobactam 2.25 GM in Sodium Chloride 0.9% 50 ML IV SCH ×4 (05:35→23:10)
[2022-07-31] MEDS: Isosorbide Mononitrate 30 MG Tab.ER PO SCH (05:35)
[2022-07-31 06:17] LABS: ANION GAP 19.8 mEq/L (7-13)
[2022-07-31] MEDS ORDERED: LORazepam 1 MG Tab PO PRN (08:28)
[2022-07-31] MEDS ORDERED: Meropenem 1 GM SDV IVPUSH SCH (09:00)
[2022-07-31] MEDS: LORazepam 1 MG Tab PO PRN ×2 (09:27→21:25)
[2022-07-31] MEDS: Insulin Lispro 100 Units/ML 3 ML Vial SUBCUT SCH ×3 (09:28→17:24)
[2022-07-31] MEDS: [UNRECOGNIZED DRUG - OTHER] PO SCH (09:30)
[2022-07-31] MEDS: Apixaban 5 MG Tab PO SCH ×2 (09:31→20:33)
[2022-07-31] MEDS: Saccharomyces Boulardii (Probiotic) 250 MG Cap PO SCH ×2 (09:31→20:32)
[2022-07-31] MEDS: Metoprolol Tartrate 50 MG Tab PO SCH ×2 (09:33→20:32)
[2022-07-31] MEDS: methylPREDNISolone Sodium Succinate 40 MG/1 ML SDV IVPUSH SCH ×2 (09:40→20:32)
[2022-07-31] MEDS: Meropenem 500 MG SDV IV SCH (13:14)
[2022-07-31] MEDS: Doxazosin 2 MG Tab PO SCH (20:33)
[2022-07-31] MEDS: traZODone 50 MG Tab PO SCH (20:34)
[2022-07-31] MEDS: guaiFENesin/Dextromethorphan 100-10 MG/5 ML Soln 5 ML Cup PO PRN (21:24)
[2022-07-31] MEDS: Acetaminophen/HYDROcodone 325-5 MG Tab PO PRN (21:25)
[2022-08-01] MEDS: hydrALAZINE 25 MG Tab PO SCH ×3 (01:44→13:58)
[2022-08-01] MEDS: guaiFENesin/Dextromethorphan 100-10 MG/5 ML Soln 5 ML Cup PO PRN (01:45)
[2022-08-01] MEDS: Albuterol/Ipratropium 3.0-0.5 MG/3 ML Neb Soln NEB SCH ×3 (02:00→11:26)
[2022-08-01] MEDS: Piperacillin/Tazobactam 2.25 GM in Sodium Chloride 0.9% 50 ML IV SCH ×2 (05:09→12:01)
[2022-08-01] MEDS: Isosorbide Mononitrate 30 MG Tab.ER PO SCH (05:11)
[2022-08-01 06:22] LABS: ANION GAP 19.8 mEq/L (7-13)
[2022-08-01] MEDS: Apixaban 5 MG Tab PO SCH (09:08)
[2022-08-01] MEDS: methylPREDNISolone Sodium Succinate 40 MG/1 ML SDV IVPUSH SCH (09:08)
[2022-08-01] MEDS: Metoprolol Tartrate 50 MG Tab PO SCH (09:09)
[2022-08-01] MEDS: Saccharomyces Boulardii (Probiotic) 250 MG Cap PO SCH (09:10)
[2022-08-01] MEDS: Insulin Lispro 100 Units/ML 3 ML Vial SUBCUT SCH ×2 (09:10→12:09)
[2022-08-01] MEDS: [UNRECOGNIZED DRUG - OTHER] PO SCH (09:11)
[2022-08-01] MEDS: Meropenem 500 MG SDV IV SCH (12:05)
[2022-08-01 14:34] VITALS: BP 132/64; PULSE 72
== END 2022-08-01 15:30 | DRG 871 ==
LOC: DL.ED 16:02 → DL.MS 18:13
PROVIDERS: ADMIT Internal Medicine; ATTEND Internal Medicine
DX: A41.9 Sepsis, unspecified organism (principal); I26.99 Other pulmonary embolism without acute cor pulmonale; J18.9 Pneumonia, unspecified organism; J96.01 Acute respiratory failure with hypoxia; N25.81 Secondary hyperparathyroidism of renal origin; E87.1 Hypo-osmolality and hyponatremia; I13.0 Hypertensive heart and chronic kidney disease with heart failure and stage 1 through stage 4 chronic kidney disease, or unspecified chronic kidney disease; J98.11 Atelectasis; N18.5 Chronic kidney disease, stage 5; M86.8X8 Other osteomyelitis, other site; Z66 Do not resuscitate; E78.5 Hyperlipidemia, unspecified; E03.9 Hypothyroidism, unspecified; E11.21 Type 2 diabetes mellitus with diabetic nephropathy; E11.22 Type 2 diabetes mellitus with diabetic chronic kidney disease; E11.42 Type 2 diabetes mellitus with diabetic polyneuropathy; D63.1 Anemia in chronic kidney disease; M85.80 Other specified disorders of bone density and structure, unspecified site; M10.9 Gout, unspecified; E78.00 Pure hypercholesterolemia, unspecified; K59.09 Other constipation; D50.9 Iron deficiency anemia, unspecified; E53.8 Deficiency of other specified B group vitamins; M19.90 Unspecified osteoarthritis, unspecified site; I50.9 Heart failure, unspecified; G47.00 Insomnia, unspecified; G89.29 Other chronic pain; I48.0 Paroxysmal atrial fibrillation; M54.50 Low back pain, unspecified; E11.69 Type 2 diabetes mellitus with other specified complication; F41.9 Anxiety disorder, unspecified; E83.9 Disorder of mineral metabolism, unspecified; E66.9 Obesity, unspecified; E11.65 Type 2 diabetes mellitus with hyperglycemia; Z68.31 Body mass index [BMI] 31.0-31.9, adult; Z79.899 Other long term (current) drug therapy; Z79.82 Long term (current) use of aspirin; Z74.01 Bed confinement status; Z89.411 Acquired absence of right great toe; Z88.8 Allergy status to other drugs, medicaments and biological substances; Z98.49 Cataract extraction status, unspecified eye; Z90.710 Acquired absence of both cervix and uterus; Z90.89 Acquired absence of other organs; Z98.890 Other specified postprocedural states; Z90.721 Acquired absence of ovaries, unilateral; Z83.3 Family history of diabetes mellitus
CPT/HCPCS: 36415; 51702; 70450; 71045; 80048; 80053; 80061; 81001; 82947; 83605; 83735; 83880; 84100; 84439; 84443; 84484; 85025; 85379; 85610; 85730; 86140; 87040; 87493; 93005; 93010; 93970; 94060; 94640; 94660; 96365; 96375; 97116-GP; 97161-GP; 97165-GO; 97530-GO; 97530-GP; 99239; 99284; 99285-25; A9270-GY; J0456; J0696; J1160; J1644; J1650; J1815-GY; J1940; J2185; J2543; J2920; J3490; J7030; J7050; J7613-GY; J7620-GY